=== PATIENT | female | born 1970 | race American Indian/Alaskan Native ===

== ENCOUNTER 2018-01-14 00:01 | Emergency (ER) | payer SELFPAY ==
[2018-01-14 01:03] VITALS: BP 129/91
--- NOTE | 2018-01-14 02:36 | Emergency Department Report ---
ED ENT HPI - General Chief complaint: Dental/Oral Stated complaint: ALLERGIC REACTION FROM TOOTH EXTRACTION Time Seen by Provider: 01/14/18 02:25 Source: patient Mode of arrival: Ambulatory Limitations: No Limitations - History of Present Illness Initial comments: 47-year-old Afro-[place] female presents to the emergency room for complaint of right lower mouth pain. Patient had a tooth pulled last week and she's been having pain since. Patient reports she's been taking Percocet, Aleve, ibuprofen and beer. Reports that pain is consistent. All pain medication has been given her stomach pains. Patient also reports that she's been having constipation since 2007 intermittently. Patient was seen by her GI doctor today. Last colonoscopy was 2016. Patient reports no known drug allergies. MD complaint: tooth pain -: days(s) (4) Severity scale (0 -10): 8 Quality: stabbing, aching Consistency: constant Improves with: none Worsens with: none Context- Dental: other (tooth removal) Associated Symptoms: denies: fever - Related Data Previous Rx's Medication Instructions Recorded Last Taken Type Ibuprofen [Motrin] 600 mg PO Q8H PRN #16 tablet 08/15/13 Unknown Rx Amoxicillin [Trimox CAP] 500 mg PO Q8H #30 capsule 01/14/18 Unknown Rx Allergies Allergy/AdvReac Type Severity Reaction Status Date / Time No Known Allergies Allergy Verified 08/15/13 16:46 ED Dental HPI - General Chief complaint: Dental/Oral Stated complaint: ALLERGIC REACTION FROM TOOTH EXTRACTION Time Seen by Provider: 01/14/18 02:25 Source: patient Mode of arrival: Ambulatory Limitations: No Limitations - Related Data Previous Rx's Medication Instructions Recorded Last Taken Type Ibuprofen [Motrin] 600 mg PO Q8H PRN #16 tablet 08/15/13 Unknown Rx Amoxicillin [Trimox CAP] 500 mg PO Q8H #30 capsule 01/14/18 Unknown Rx Allergies Allergy/AdvReac Type Severity Reaction Status Date / Time No Known Allergies Allergy Verified 08/15/13 16:46 ED Review of Systems ROS: Stated complaint: ALLERGIC REACTION FROM TOOTH EXTRACTION Other details as noted in HPI ENT: dental pain Gastrointestinal: abdominal pain (intermittent abdominal pains) ED Past Medical Hx - Past Medical History Previous Medical History?: No - Surgical History Past Surgical History?: Yes Additional Surgical History: part hyst, c-sect - Social History Smoking Status: Never Smoker Substance Use Type: None - Medications Home Medications: Home Medications Medication Instructions Recorded Confirmed Last Taken Type Ibuprofen [Motrin] 600 mg PO Q8H PRN #16 tablet 08/15/13 Unknown Rx Amoxicillin [Trimox CAP] 500 mg PO Q8H #30 capsule 01/14/18 Unknown Rx ED Physical Exam - General Limitations: No Limitations General appearance: alert, in no apparent distress - Head Head exam: Present: atraumatic, normocephalic - Eye Eye exam: Present: EOMI - Expanded ENT Exam Expanded Teeth exam: Present: gingival enlargement, other (tooth #30 is missing) - Neck Neck exam: Present: full ROM. Absent: tenderness, lymphadenopathy - GI/Abdominal GI/Abdominal exam: Present: soft, normal bowel sounds ED Course Vital Signs 01/14/18 01:00 Temperature 74 F L Respiratory 17 Rate Blood Pressure 129/91 O2 Sat by Pulse 99 Oximetry ED Medical Decision Making - Medical Decision Making Patient has been evaluated by this provider fast track. Toradol 30 mg IM given for patient as well as amoxicillin 500 mg starting dose. Patient's blood pressure is stable heart rate is 74 temperature 98.7 by mouth Patient be discharged home on amoxicillin 500 mg every 8 hours and to continue her pain medication as prescribed by her dentist. She is also keep her appointment with the GI specialist that she seen on Tuesday for her chronic abdominal pains. Critical care attestation.: If time is entered above; I have spent that time in minutes in the direct care of this critically ill patient, excluding procedure time. ED Disposition Clinical Impression: Dental abscess Disposition: TO HOME OR SELFCARE Is pt being admited?: No Does the pt Need Aspirin: No Condition: Stable Instructions: Dental Abscess (ED) Additional Instructions: Continue with her pain medication. Complete antibiotics as prescribed. Contact your dentist to make follow-up appointment within the next 24-72 hours. Please increase her fluid intake. Prescriptions: Amoxicillin [Trimox CAP] 500 mg PO Q8H #30 capsule Referrals: PRIMARY CARE, [Primary Care Provider] - 3-5 Days Forms: Work/School Release Form(ED), Accompanied Note
[2018-01-14] MEDS ORDERED: TORADOL IM ONE (02:37)
[2018-01-14] MEDS ORDERED: TRIMOX PO ONE (02:37)
== END 2018-01-14 03:05 | disposition home or self-care (01) ==
LOC: ED 00:01
DX: K04.7 Periapical abscess without sinus (principal); Z90.711 Acquired absence of uterus with remaining cervical stump
CPT/HCPCS: 96372; 99282; J1885

== ENCOUNTER 2018-10-04 19:28 | Emergency (ER) | payer BC ==
--- NOTE | 2018-10-04 20:08 | Emergency Department Report ---
Blank Doc - Documentation Documentation: pt presents to the ED with c/o neck spasms that began 1 week and a half ago states she woke up with it no fall, injury, trauma no numbness or weakness never had before no PMHx no medication allergies non smoker occ drinker no drug use
[2018-10-04 20:10] VITALS: BP 163/103
[2018-10-04] MEDS ORDERED: TORADOL IM ONE (21:59)
[2018-10-04] MEDS ORDERED: DELTASONE PO ONE (22:00)
--- NOTE | 2018-10-04 22:22 | Emergency Department Report ---
ED Neck Pain/Injury HPI - General Chief Complaint: Neck Pain/Injury Stated Complaint: LEFT NECK PAIN Time Seen by Provider: 10/04/18 20:06 Mode of arrival: Ambulatory Limitations: No Limitations - History of Present Illness Initial Comments: This is a 48-year-old female nontoxic, well nourished in appearance, no acute signs of distress presents to the ED with c/o of left sided upper back pain. Patient stated that the past week developed pain. Patient stated that is worsen with movement and relieved with rest. Patient denies any trauma. Denies any bladder or bowel instability. Patient denies any stiff neck or headache. Denies any fever, chills, nausea, vomiting, headache, stiff neck, chest pain or shortness of breath. Patient denies any numbness or tingling. Denies any allergies. Denies significant past medical history. MD Complaint: neck pain, upper back pain -: week(s) (1) Place: home Severity: mild Severity scale (0 -10): 8 Quality: aching Consistency: intermittent Improves With: immobilization, rest supine Worsens With: movement of neck Associated Symptoms: none. denies: headache, fever, numbness, tingling, weakness, vertigo, difficulty walking, swollen glands, difficulty swallowing, nausea, vomiting - Related Data Previous Rx's Medication Instructions Recorded Last Taken Type Ibuprofen [Motrin] 600 mg PO Q8H PRN #16 tablet 08/15/13 Unknown Rx Amoxicillin [Trimox CAP] 500 mg PO Q8H #30 capsule 01/14/18 Unknown Rx Cyclobenzaprine [Flexeril] 10 mg PO QHS PRN #10 tablet 10/04/18 Unknown Rx Ibuprofen [Motrin] 600 mg PO Q8H PRN #20 tablet 10/04/18 Unknown Rx Allergies Allergy/AdvReac Type Severity Reaction Status Date / Time No Known Allergies Allergy Verified 08/15/13 16:46 ED Review of Systems ROS: Stated complaint: LEFT NECK PAIN Other details as noted in HPI Constitutional: denies: chills, fever Eyes: denies: eye pain, eye discharge, vision change ENT: denies: ear pain, throat pain Respiratory: denies: cough, shortness of breath, wheezing Cardiovascular: denies: chest pain, palpitations Endocrine: no symptoms reported Gastrointestinal: denies: abdominal pain, nausea, diarrhea Genitourinary: denies: urgency, dysuria, discharge Musculoskeletal: denies: back pain, joint swelling, arthralgia Skin: denies: rash, lesions Neurological: denies: headache, weakness, paresthesias Psychiatric: denies: anxiety, depression Hematological/Lymphatic: denies: easy bleeding, easy bruising ED Past Medical Hx - Past Medical History Previous Medical History?: No - Surgical History Past Surgical History?: Yes Additional Surgical History: part hyst, c-sect - Social History Smoking Status: Never Smoker Substance Use Type: None - Medications Home Medications: Home Medications Medication Instructions Recorded Confirmed Last Taken Type Ibuprofen [Motrin] 600 mg PO Q8H PRN #16 tablet 08/15/13 Unknown Rx Amoxicillin [Trimox CAP] 500 mg PO Q8H #30 capsule 01/14/18 Unknown Rx Cyclobenzaprine [Flexeril] 10 mg PO QHS PRN #10 tablet 10/04/18 Unknown Rx Ibuprofen [Motrin] 600 mg PO Q8H PRN #20 tablet 10/04/18 Unknown Rx ED Physical Exam - General Limitations: No Limitations General appearance: alert, in no apparent distress - Head Head exam: Present: atraumatic, normocephalic - Eye Eye exam: Present: normal appearance, PERRL, EOMI - Neck Neck exam: Present: normal inspection, full ROM. Absent: tenderness, meningismus, lymphadenopathy - Extremities Exam Extremities exam: Present: normal inspection, full ROM - Back Exam Back exam: Present: normal inspection, full ROM, paraspinal tenderness (left cervical paraspinal). Absent: tenderness, CVA tenderness (R), CVA tenderness (L), muscle spasm, vertebral tenderness, rash noted - Neurological Exam Neurological exam: Present: alert, oriented X3, normal gait - Psychiatric Psychiatric exam: Present: normal affect, normal mood - Skin Skin exam: Present: warm, dry, intact, normal color. Absent: rash ED Course Vital Signs 10/04/18 20:07 Temperature 98 F Pulse Rate 82 Respiratory 18 Rate Blood Pressure 163/103 [Left] O2 Sat by Pulse 98 Oximetry - Reevaluation(s) Reevaluation #1: 10/04/18 22:20 Patient is speaking in full sentences with no signs of distress noted. ED Medical Decision Making - Medical Decision Making This is a 48-year-old female that presents with upper back strain. Patient is stable was examined by me. There is no spinal tenderness. There is no cauda equina syndrome during examination. No bladder or bowel instability. Patient received Toradol 60 mg IM and Prednisone in the ED which stated that her symptoms has resolved and subsided. Xray of cervical spine has been obtained and dictated by the radiologist and is WNL. Patient was notified of the results with no questions noted by the patient. Patient is discharged with muscle relaxant and Motrin. Patient was instructed not to operate any machinery while taking muscle relaxant as they cause her drowsiness. Patient was referred to Follow-up with a primary care doctor in 3-5 days or if symptoms worsen and continue return to emergency room as soon as possible. At time of discharge, the patient does not seem toxic or ill in appearance. No acute signs of distress noted. Patient agrees to discharge treatment plan of care. No further questions noted by the patient. This chart is dictated with using [employer] Critical care attestation.: If time is entered above; I have spent that time in minutes in the direct care of this critically ill patient, excluding procedure time. ED Disposition Clinical Impression: Cervical muscle strain Qualifiers: Encounter type: initial encounter Qualified Code(s): S16.1XXA - Strain of muscle, fascia and tendon at neck level, initial encounter Disposition: TO HOME OR SELFCARE Is pt being admited?: No Does the pt Need Aspirin: No Condition: Stable Instructions: Muscle Strain (ED), Cyclobenzaprine (By mouth) Additional Instructions: Follow-up with your primary care doctor in 3-5 days or if symptoms worsen such as bladder or bowel stability, chest pain, short of breath, numbness or tingling sensation in extremities, headache, dizziness, visual changes, nausea vomiting, or abdominal pain, return back to emergency room as was possible. Take ibuprofen and Flexeril as prescribed. Do not operate heavy machinery while taking Flexeril due to sedation Prescriptions: Cyclobenzaprine [Flexeril] 10 mg PO QHS PRN #10 tablet PRN Reason: Muscle Spasm Ibuprofen [Motrin] 600 mg PO Q8H PRN #20 tablet PRN Reason: Pain Referrals: MARLA LLOYD MD [Primary Care Provider] - 3-5 Days PRIMARY CAREMD [Referring] - 3-5 Days PRISCILLA BAILON MD [Staff Physician] - 3-5 Days [facility] [Outside] - 3-5 Days [facility] [Outside] - 3-5 Days Forms: Work/School Release Form(ED)
--- NOTE | 2018-10-04 23:11 | XRay Report ---
PROCEDURE: XR SPINE CERVICAL 2-3V TECHNIQUE: Cevical spine, views. HISTORY: neck pain COMPARISONS: None . FINDINGS: Prevertebral soft tissues: Normal . Alignment: There is loss of cervical lordosis. . Vertebral body heights/Disk spaces: Narrowing of intervertebral disc spaces is noted at C4-5 and C6- 7 with moderate degree anterior marginal osteophyte formation and mild degree posterior marginal oste ophyte formation. There is no significant spinal canal compromise. . Fracture(s): None . Bone mineralization: Normal . IMPRESSION: Cervical spondylosis at C4-5 and C6-7. This document is electronically signed by Ilan Vargas MD., October 04 2018 11:09:35 PM ET
== END 2018-10-04 23:30 | disposition home or self-care (01) ==
LOC: ED 19:28
DX: S16.1XXA Strain of muscle, fascia and tendon at neck level, initial encounter (principal); Z90.710 Acquired absence of both cervix and uterus; X58.XXXA Exposure to other specified factors, initial encounter; Y93.89 Activity, other specified; Y92.099 Unspecified place in other non-institutional residence as the place of occurrence of the external cause; Y99.8 Other external cause status
CPT/HCPCS: 72040; 96372; 99283; J1885; J7512

== ENCOUNTER 2018-12-04 07:19 | Emergency (ER) | payer BC ==
[2018-12-04 07:29] VITALS: BP 127/83
[2018-12-04] MEDS ORDERED: TORADOL IM ONE (07:59)
[2018-12-04] MEDS ORDERED: DELTASONE PO ONE (07:59)
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
[2018-12-04] MEDS ORDERED: ZOVIRAX PO ONE (08:30)
== END 2018-12-04 08:50 | disposition home or self-care (01) ==
LOC: ED 07:19
DX: B02.9 Zoster without complications (principal); Z90.710 Acquired absence of both cervix and uterus; Z79.899 Other long term (current) drug therapy
CPT/HCPCS: 93005; 93010; 96372; 99282; J1885; J7512

== ENCOUNTER 2020-01-28 18:53 | Emergency (ER) | payer OTHER, BC ==
[2020-01-29 00:18] VITALS: BP 141/96
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
[2020-01-29] MEDS ORDERED: IBUPROFEN 800 MG TAB PO ONE (01:52)
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
== END 2020-01-29 02:55 | disposition home or self-care (01) ==
LOC: ED 18:53
DX: S16.1XXA Strain of muscle, fascia and tendon at neck level, initial encounter (principal); S39.012A Strain of muscle, fascia and tendon of lower back, initial encounter; G44.209 Tension-type headache, unspecified, not intractable; Z98.890 Other specified postprocedural states; Z90.710 Acquired absence of both cervix and uterus; Z79.899 Other long term (current) drug therapy; Z88.6 Allergy status to analgesic agent; V89.2XXA Person injured in unspecified motor-vehicle accident, traffic, initial encounter; Y93.89 Activity, other specified; Y92.410 Unspecified street and highway as the place of occurrence of the external cause; Y99.8 Other external cause status
CPT/HCPCS: 72040; 72070; 99283